=== PATIENT | male | born 1970 | race Caucasian/White ===

== ENCOUNTER 2018-05-29 09:45 | Emergency (ER) | payer OTHER, SELFPAY ==
[2018-05-29 09:45] VITALS: BP 165/84; PULSE 91; RESP 20; TEMP 36.6; O2SAT 98; BMI 25.8
--- NOTE | 2018-05-29 10:04 | CT_ITS ---
STUDY: CTA CHEST REASON FOR EXAM: Male, 48 years old. Left upper back pain. Chest pain. RADIATION DOSAGE (If Supplied By Facility): CTDIvol = ( 13.64 ) mGy, DLP = ( 949.84 ) mGycm TECHNIQUE: The examination was performed with the intravenous administration of 100 ml of Isovue 370 contrast material. Post-processing of the angiographic images was performed, with multiplanar reformation and 3D reconstruction. Individualized dose optimization techniques were used for this CT. COMPARISON: None. FINDINGS: Normal enhancement of the main pulmonary artery and right and left pulmonary arteries. Normal enhancement of the bilateral peripheral pulmonary arteries. There is no demonstrated pulmonary embolism. Normal thoracic aorta and visualized great vessels. There is no demonstrated aortic dissection. Normal heart and pericardium. Normal mediastinum. Normal hilar regions. Normal visualized trachea and bronchi. The lungs are well expanded. Normal pulmonary parenchyma. Normal pleura. Normal chest wall structures. Normal osseous structures. Normal visualized upper abdomen. IMPRESSION: Normal CTA chest examination, without a demonstrated pulmonary embolism or arterial dissection. Electronically Signed: Sang Romero MD at 11:19 EST , Service support , STUDY: CTA OF THE ABDOMINAL AORTA REASON FOR EXAM: Male, 48 years old. Left upper back pain. Chest pain. RADIATION DOSAGE (If Supplied By Facility): CTDIvol = ( 13.64 ) mGy, DLP = ( 949.84 ) mGycm TECHNIQUE: Axial CT angiography multi-detector data acquisition was obtained from the diaphragm to the sacrum following intravenous administration of 100 ml of Isovue 370 contrast. Axial images and MIP images were reconstructed from the axial data set. Post-processing of the angiographic images was performed, with multiplanar reformation and 3D reconstruction. Individualized dose optimization techniques were used for this CT. TECHNICAL QUALITY: Good COMPARISON: None. Descriptors of Narrowing: None (0%) Mild (< 50%) Moderate (50-70%) Severe (70-90%) Subtotal/Total Occlusion (90-100%) Non-Evaluable (technically non-diagnostic FINDINGS: Abdominal aorta: No demonstrated narrowing. Celiac and superior mesenteric arteries: No demonstrated narrowing. Inferior mesenteric artery: No demonstrated narrowing. Right renal artery(arteries): No demonstrated narrowing. Left renal artery(arteries): No demonstrated narrowing. Right common iliac artery: No demonstrated narrowing. Left common iliac artery: No demonstrated narrowing. The visualized lung bases are unremarkable. The visualized portions of the heart are within normal limits. Normal liver. Normal gallbladder and extrahepatic biliary system. Normal spleen. Normal pancreas. Normal bilateral adrenal glands. Normal right kidney. Normal left kidney. Normal visualized stomach. Normal small intestine. Normal colon. There is non-visualization of the appendix. Normal abdominal aorta. Normal inferior vena cava. Normal retroperitoneum. There is no free fluid in the abdomen. Normal abdominal wall. There is grade 1 spondylolisthesis at L5-S1 with bilateral pars interarticularis defects of L5. CT/CTA Abdomen W/WO Contrast IMPRESSION: Normal abdominal aorta without aneurysm or dissection. Electronically Signed: Sang Romero MD at 11:23 EST , Service support ,
--- NOTE | 2018-05-29 10:04 | EKG12_ITS ---
Test Reason : CHEST PAIN Blood Pressure : / mmHG Vent. Rate : 078 BPM Atrial Rate : 078 BPM P-R Int : 140 ms QRS Dur : 076 ms QT Int : 356 ms P-R-T Axes : 031 -12 045 degrees QTc Int : 405 ms Normal sinus rhythm with sinus arrhythmia Normal ECG Confirmed by JAYASHREE MILLS, DIANN ([id number]), manuscript editor ELLEN REAGAN ([id number]) on 06/01/2018 9:03:28 AM Referred By: EUGENIO Confirmed By:DIANN BLANC MD
--- NOTE | 2018-05-29 10:04 | CT_ITS ---
STUDY: CTA CHEST REASON FOR EXAM: Male, 48 years old. Left upper back pain. Chest pain. RADIATION DOSAGE (If Supplied By Facility): CTDIvol = ( 13.64 ) mGy, DLP = ( 949.84 ) mGycm TECHNIQUE: The examination was performed with the intravenous administration of 100 ml of Isovue 370 contrast material. Post-processing of the angiographic images was performed, with multiplanar reformation and 3D reconstruction. Individualized dose optimization techniques were used for this CT. COMPARISON: None. FINDINGS: Normal enhancement of the main pulmonary artery and right and left pulmonary arteries. Normal enhancement of the bilateral peripheral pulmonary arteries. There is no demonstrated pulmonary embolism. Normal thoracic aorta and visualized great vessels. There is no demonstrated aortic dissection. Normal heart and pericardium. Normal mediastinum. Normal hilar regions. Normal visualized trachea and bronchi. The lungs are well expanded. Normal pulmonary parenchyma. Normal pleura. Normal chest wall structures. Normal osseous structures. Normal visualized upper abdomen. IMPRESSION: Normal CTA chest examination, without a demonstrated pulmonary embolism or arterial dissection. Electronically Signed: Sang Romero MD at 11:19 EST , Service support , STUDY: CTA OF THE ABDOMINAL AORTA REASON FOR EXAM: Male, 48 years old. Left upper back pain. Chest pain. RADIATION DOSAGE (If Supplied By Facility): CTDIvol = ( 13.64 ) mGy, DLP = ( 949.84 ) mGycm TECHNIQUE: Axial CT angiography multi-detector data acquisition was obtained from the diaphragm to the sacrum following intravenous administration of 100 ml of Isovue 370 contrast. Axial images and MIP images were reconstructed from the axial data set. Post-processing of the angiographic images was performed, with multiplanar reformation and 3D reconstruction. Individualized dose optimization techniques were used for this CT. TECHNICAL QUALITY: Good COMPARISON: None. Descriptors of Narrowing: None (0%) Mild (< 50%) Moderate (50-70%) Severe (70-90%) Subtotal/Total Occlusion (90-100%) Non-Evaluable (technically non-diagnostic FINDINGS: Abdominal aorta: No demonstrated narrowing. Celiac and superior mesenteric arteries: No demonstrated narrowing. Inferior mesenteric artery: No demonstrated narrowing. Right renal artery(arteries): No demonstrated narrowing. Left renal artery(arteries): No demonstrated narrowing. Right common iliac artery: No demonstrated narrowing. Left common iliac artery: No demonstrated narrowing. The visualized lung bases are unremarkable. The visualized portions of the heart are within normal limits. Normal liver. Normal gallbladder and extrahepatic biliary system. Normal spleen. Normal pancreas. Normal bilateral adrenal glands. Normal right kidney. Normal left kidney. Normal visualized stomach. Normal small intestine. Normal colon. There is non-visualization of the appendix. Normal abdominal aorta. Normal inferior vena cava. Normal retroperitoneum. There is no free fluid in the abdomen. Normal abdominal wall. There is grade 1 spondylolisthesis at L5-S1 with bilateral pars interarticularis defects of L5. CT/CTA Chest W/WO Contrast IMPRESSION: Normal abdominal aorta without aneurysm or dissection. Electronically Signed: Sang Romero MD at 11:23 EST , Service support ,
[2018-05-29 10:19] LABS: Absolute Lymphocyte Count 1.56 X10^3/ul (0.83-4.51); Absolute Neutrophil Count 1.3 X10^3/uL (2.0-7.7); Basophil# 0.01 X10^3/uL; Basophil% 0.3 % (0-1); Eosinophil# 0.05 X10^3/uL; Eosinophils% 1.6 % (0-5); Hematocrit 47.6 % (40-54); Hemoglobin 16.6 g/dl (13.0-16.5); Lymphocyte # 1.56 X10^3/ul (4.0); Lymphocyte % 48.4 % (19-41); Mean Corp Hgb Conc 34.9 g/gl (32-36); Mean Corpuscular Hgb 32.7 pg (27.0-32.0); Mean Corpuscular Volume 93.9 fL (80-94); Mean Platelet Vol. 8.8 fl (6.2-12.0); Monocyte# 0.32 X10^3/uL; Monocyte% 9.9 % (0-10); Neutrophil # 1.27 X10^3/uL (2.7-7.7); Neutrophil % 39.5 % (47-70); POSITIVE COUNT NO; POSITIVE DIFFERENTIAL NO; POSITIVE MORPHOLOGY NO; Platelet Count 158 K/mm3 (150-450); RBC Distribution Width SD 44.3 fl (35.1-43.9); Red Blood Count 5.07 M/mm3 (4.6-6.2); White Blood Count 3.2 K/mm3 (4.4-11.0)
--- NOTE | 2018-05-29 10:29 | ED.DCSUM_ITS ---
- ER Visit Summary Date of Service: 05/29/18 Chief Complaint: Pain History of Present Illness: The patient is a 48 M with left mid back pain. This started about half an hour prior to arrival. He has intermittent sharp pains that radiate through to the left chest. He never had this before. Nothing seemed to bring it on or make it worse. He has intermittent sharp pains. No other associated symptoms. He slipped at work a couple days ago and pulled his left groin, but that has resolved. Otherwise no injuries. No recent medical issues, illnesses, or fevers. Patient has a history of GERD and H. pylori infections. History of appendectomy, umbilical hernia repair and inguinal hernia repair on the right remotely. Denies nausea, vomiting, or diarrhea. Denies urinary symptoms. Denies any history of aortic disease or pulmonary embolism. Denies any history of heart disease. Denies cough, shortness of breath, or recent illness. Physical Examination: Blood pressure 165/84. Otherwise vitals normal. Afebrile. Patient is having intermittent twinges of pain. Heart regular rate and rhythm. Lungs clear. Abdomen soft and nontender. Skin appears normal. Neurovascular intact in his extremities grossly. Test Results: EKG shows sinus rhythm at a rate of 78. No sign of acute ischemia or infarction pattern. Laboratory studies as well as CTA chest/abdomen/pelvis pending. Emergency Department Course and Treatment: Patient treated with morphine and Zofran while awaiting results. We will hold aspirin at this time for evaluation of his aorta. Patient will be monitored. White count 3.2 and hemoglobin 16.6. CMP and lipase normal. Troponin normal. CTA chest/abdomen/pelvis showed no PE or dissection. Normal vasculature. No other concerning findings. Patient likely has chest wall pain. No other emergent imaging or diagnostic procedures are indicated. Patient has a low risk heart score of 1 and he declined further testing or admission. Patient will follow-up as an outpatient. Prescribed anti-inflammatories and muscle relaxers. Return right away for new or worsening issues. Treatment Plan: As above Disposition: Discharge Impression: 1. Chest wall pain This note was generated with [employer] dictation software. It may contain incorrect words, spelling, and punctuation that were not noted in review of the chart prio r to signing ED Disposition - Plan for ED Patient: Chief Complaint: Chest Other Referrals: Nacho Perez DO [Primary Care Provider] -
[2018-05-29 10:34] LABS: AST(SGOT) 29 U/L (15-37); Alanine Aminotransfer ALT/SGPT 74 U/L (16-61); Albumin, Serum 4.2 g/dL (3.2-5.0); Alkaline Phosphatase 55 U/L (45-117); Anion Gap 9 (5-15); BUN 11 mg/dL (7-18); Bilirubin, Direct 0.11 mg/dL (0.00-0.30); Calcium,Total 8.7 mg/dL (8.5-10.1); Chloride 105 mmol/L (98-107); EST Glomerular Filtration Rate 84 mL/min (>60); Est Glom Filt Rate - Afr Amer 102 mL/min (>60); Estimated Creatinine Clearance 86.45 ml/min; Globulin 3.2 g/dL (2.2-4.2); Glucose 103 mg/dL (74-106); Lipase 116 U/L (73-393); Potassium 3.9 mmol/L (3.5-5.1); Protein, Total 7.4 g/dL (6.4-8.2); Sodium Level 141 mmol/L (136-145)
[2018-05-29] MEDS: Morphine 4 MG/ML Syringe IV (10:35)
[2018-05-29] MEDS: Ondansetron 4 MG/2 ML Vial IV (10:35)
[2018-05-29 10:50] VITALS: O2SAT 95
--- NOTE | 2018-05-29 12:16 | ED.DEP ---
ED Disposition - Plan for ED Patient: Chief Complaint: Chest Other Instructions: ED Chest Pain Atypical Unkn Cause Prescriptions: Ibuprofen [Motrin] 800 mg PO TID PRN PRN #20 tab PRN Reason: Pain Cyclobenzaprine [Flexeril] 10 mg PO TID PRN #20 tab PRN Reason: Muscle Spasm Referrals: Nacho Perez DO [Primary Care Provider] -
[2018-05-29 13:27] VITALS: BP 104/62; PULSE 68; RESP 17; RESP 19
== END 2018-05-29 13:28 | disposition home or self-care (01) ==
LOC: ED 10:24
PROVIDERS: Emergency Provider Emergency Medicine; Family Provider Family Medicine; PCP Family Medicine
DX: R07.89 Other chest pain (principal); M54.9 Dorsalgia, unspecified; K21.9 Gastro-esophageal reflux disease without esophagitis; F17.220 Nicotine dependence, chewing tobacco, uncomplicated; Z79.899 Other long term (current) drug therapy
CPT/HCPCS: 71275; 74175; 80048; 80076; 83690; 84484; 85025; 93005; 96374; 96375; 99284; J7030; Q9967; A4216; J2405

== ENCOUNTER → 2018-11-15 10:55 | Outpatient (CLI) | payer OTHER, SELFPAY ==
[2018-11-15 10:59] LABS: Bacteria 0 SEEN /hpf (None Seen); Mucous, Urine 0 SEEN /hpf (<or=2+); Red Blood Cells-Urine 0 SEEN /hpf (0-5); Squamous Epithelial Cells - UA 0 SEEN /hpf (0-5); White Blood Cells 0 SEEN /hpf (0-5)
[2018-11-15 12:17] LABS: Color, Urine Yellow (Yellow); Glucose, Dipstick Normal (Normal); Ketone-Dipstick Negative (Negative); Leukocyte Esterase-Dipstick Negative /ul (Negative); Nitrite-Dipstick Negative (Negative); Occult Blood-Urine Negative /ul (Negative); Protein-Dipstick Negative (Negative); Urine Bilirubin Dipstick Negative (Negative); Urine Clarity Clear (Clear); Urine Urobilinogen Normal (Normal)
[2018-11-15 12:34] LABS: Erythrocyte Sedimentation Rate 3 mm/hr (0-15)
[2018-11-15 13:34] LABS: ALB/GLOB Ratio 1.4 RATIO (0.9-2.4); AST(SGOT) 31 U/L (15-37); Alanine Aminotransfer ALT/SGPT 49 U/L (16-61); Albumin, Serum 4.1 g/dL (3.2-5.0); Alkaline Phosphatase 64 U/L (45-117); Anion Gap 5 (5-15); BUN 14 mg/dL (7-18); BUN/Creat Ratio 15.5 RATIO (10-20); CRP < 2.90 mg/L (0.0-3.0); Calcium,Total 8.7 mg/dL (8.5-10.1); Chloride 106 mmol/L (98-107); EST Glomerular Filtration Rate 95 mL/min (>60); Est Glom Filt Rate - Afr Amer 115 mL/min (>60); Glucose 95 mg/dL (74-106); Potassium 3.8 mmol/L (3.5-5.1); Protein, Total 7.1 g/dL (6.4-8.2); Rheumatoid Factor < 10.0 IU/mL (<15); Sodium Level 138 mmol/L (136-145)
[2018-11-16 12:06] LABS: ANTINUCLEAR ANTIBODIES DIRECT Positive (Negative); Anti-Centromere B Ab <0.2 AI (0.0-0.9); Anti-Chromatin <0.2 AI (0.0-0.9); Anti-Jo <0.2 AI (0.0-0.9); Anti-Scleroderma-70 AB <0.2 AI (0.0-0.9); RNP Ab 1.1 AI (0.0-0.9); SJOGREN'S Anti-SS-A test < 0.2 AI (0.0-0.9); SJOGREN'S Anti-SS-B test < 0.2 AI (0.0-0.9); Smith Ab <0.2 AI (0.0-0.9)
[2018-11-17 08:53] LABS: CCP IgG Antibodies 3 units (0-19)
[2018-11-17 10:37] LABS: Anti-dsDNA Ab <1 IU/mL (0-9)
== END ==
PROVIDERS: Family Provider Family Medicine; PCP Family Medicine; Visit Provider Family Medicine
DX: M79.641 Pain in right hand (principal); R10.9 Unspecified abdominal pain
CPT/HCPCS: 36415; 80053; 81001; 85652; 86038; 86140; 86200; 86225; 86235; 86431

== ENCOUNTER → 2020-04-25 10:58 | Outpatient (CLI) | payer BC, SELFPAY ==
[2020-04-25 12:35] LABS: Absolute Lymphocyte Count 1.72 X10^3/uL (0.83-4.51); Basophil# 0.02 X10^3/uL; Basophil% 0.6 % (0-1); Eosinophil# 0.05 X10^3/uL; Eosinophils% 1.6 % (0-5); Hematocrit 47.3 % (40-54); Hemoglobin 16.1 g/dL (13.0-16.5); Lymphocyte # 1.72 X10^3/ul (4.0); Lymphocyte % 53.6 % (19-41); Mean Corpuscular Hgb 32.4 pg (27.0-32.0); Mean Corpuscular Volume 95.2 fL (80-94); Mean Platelet Vol. 9.3 fl (6.2-12.0); Monocyte# 0.39 X10^3/uL; Monocyte% 12.1 % (0-10); NRBC Flagged by Analyzer 0 % (0-5); Neutrophil # 1.02 X10^3/uL (2.7-7.7); Neutrophil % 31.8 % (47-70); Platelet Count 178 K/mm3 (150-450); RBC Distribution Width CV 12.2 % (11.6-14.6); RBC Distribution Width SD 42.5 fl (35.1-43.9); Red Blood Count 4.97 M/mm3 (4.6-6.2); White Blood Count 3.2 K/mm3 (4.4-11.0)
[2020-04-25 13:17] LABS: ALB/GLOB Ratio 1.2 RATIO (0.9-2.4); AST(SGOT) 27 U/L (15-37); Alanine Aminotransfer ALT/SGPT 69 U/L (16-61); Albumin, Serum 3.7 g/dL (3.2-5.0); Alkaline Phosphatase 59 U/L (45-117); Anion Gap 6 (5-15); BUN 11 mg/dL (7-18); BUN/Creat Ratio 11.2 RATIO (10-20); Calcium,Total 8.7 mg/dL (8.5-10.1); Chloride 107 mmol/L (98-107); Cholesterol 254 mg/dL (200); Creatinine, Serum 0.98 mg/dL (0.70-1.30); EST Glomerular Filtration Rate 86 mL/min (>60); Est Glom Filt Rate - Afr Amer 104 mL/min (>60); Globulin 3.2 g/dL (2.2-4.2); Glucose 86 mg/dL (74-106); High Density Lipoprotein 53 mg/dL; Protein, Total 6.9 g/dL (6.4-8.2); Sodium Level 141 mmol/L (136-145); Triglycerides 152 mg/dL; Very Low Density Lipoprotein 30 mg/dL (5-40)
== END ==
PROVIDERS: PCP Family Medicine; Visit Provider Family Medicine
DX: Z00.00 Encounter for general adult medical examination without abnormal findings (principal); Z12.5 Encounter for screening for malignant neoplasm of prostate
CPT/HCPCS: 36415; 80053; 80061; 84153; 85025; G0103

== ENCOUNTER → 2021-05-21 | Outpatient (CLI) | payer BC, SELFPAY | END | disposition home or self-care (01) | LOC: LABSPEC 12:28 | PROVIDERS: PCP Family Medicine; Visit Provider Family Medicine | DX: U07.1 COVID-19 (principal) | CPT/HCPCS: 87635; U0005; U0003 ==

== ENCOUNTER → 2022-04-30 | Outpatient (CLI) | payer BC, SELFPAY ==
[2022-04-30 15:11] LABS: Absolute Lymphocyte Count 2.26 X10^3/uL (0.83-4.51); Absolute Neutrophil Count 1.7 X10^3/uL (2.0-7.7); Basophil# 0.02 X10^3/uL; Basophil% 0.5 % (0-1); Eosinophil# 0.06 X10^3/uL; Eosinophils% 1.4 % (0-5); Hematocrit 46.9 % (40-54); Hemoglobin 16.2 g/dL (13.0-16.5); Lymphocyte # 2.26 X10^3/ul (0.83-4.51); Mean Corp Hgb Conc 34.5 g/dL (32-36); Mean Corpuscular Volume 92.7 fL (80-94); Mean Platelet Vol. 9.1 fl (6.2-12.0); Monocyte# 0.33 X10^3/uL; Monocyte% 7.6 % (0-10); NRBC Flagged by Analyzer 0 % (0-5); Neutrophil # 1.66 X10^3/uL (2.7-7.7); Platelet Count 207 K/mm3 (150-450); RBC Distribution Width CV 12.5 % (11.6-14.6); RBC Distribution Width SD 42.5 fl (35.1-43.9); Red Blood Count 5.06 M/mm3 (4.6-6.2); White Blood Count 4.4 K/mm3 (4.4-11.0)
[2022-04-30 15:34] LABS: ALB/GLOB Ratio 1.1 RATIO (0.9-2.4); AST(SGOT) 18 U/L (15-37); Alanine Aminotransfer ALT/SGPT 58 U/L (16-61); Alkaline Phosphatase 68 U/L (45-117); Anion Gap 4 (5-15); BUN 12 mg/dL (7-18); BUN/Creat Ratio 11.7 RATIO (10-20); Calcium,Total 8.9 mg/dL (8.5-10.1); Chloride 107 mmol/L (98-107); Cholesterol 251 mg/dL (200); Creatinine, Serum 1.03 mg/dL (0.70-1.30); EST Glomerular Filtration Rate 80 mL/min (>60); Est Glom Filt Rate - Afr Amer 97 mL/min (>60); Globulin 3.6 g/dL (2.2-4.2); Glucose 92 mg/dL (74-106); High Density Lipoprotein 52 mg/dL; PSA,Total - Annual Screen 1.39 ng/mL (0.00-4.00); Potassium 4.2 mmol/L (3.5-5.1); Protein, Total 7.6 g/dL (6.4-8.2); Sodium Level 139 mmol/L (136-145); Triglycerides 189 mg/dL; Very Low Density Lipoprotein 38 mg/dL (5-40)
== END | disposition home or self-care (01) ==
LOC: BFHLAB 12:28
PROVIDERS: PCP Family Medicine; Visit Provider Family Medicine
DX: Z00.00 Encounter for general adult medical examination without abnormal findings (principal); Z12.5 Encounter for screening for malignant neoplasm of prostate
CPT/HCPCS: 36415; 80053; 80061; 84153; 85025; G0103

== ENCOUNTER → 2022-06-04 | Outpatient (CLI) | payer BC, SELFPAY ==
--- NOTE | 2022-06-04 07:56 | CT_ITS ---
INDICATION: PAIN EXAMINATION: CT ABDOMEN AND PELVIS WITH CONTRAST - CT Abdomen And Pelvis W/ Contrast Injection TECHNIQUE: Helically acquired images were obtained of the abdomen and pelvis following IV contrast. A radiation dose optimization technique was used for this scan. IV Contrast dosage and agent: 100 cc of Isovue-300 Oral contrast: Redicat COMPARISON: May 29, 2018 FINDINGS: LOWER CHEST: Lung bases are clear. No cardiomegaly or pericardial effusion. LIVER: Homogeneous. No focal mass. GALLBLADDER AND BILIARY TREE: No calcified gallstones. No gallbladder distension or wall edema. No intra- or extrahepatic biliary ductal dilation. PANCREAS: No focal cystic or solid mass. SPLEEN: Normal size without focal cystic or solid mass. ADRENAL GLANDS: No nodules. KIDNEYS AND URETERS: Normal renal size and position. No hydronephrosis. PERITONEUM: No ascites or free air. No other fluid collection. BOWEL: No stomach or bowel distension. No focal inflammatory change. There is nonvisualization of the appendix. LYMPH NODES: No enlarged mesenteric or retroperitoneal lymph nodes. VESSELS: Aorta is non-dilated. URINARY BLADDER: Unremarkable. REPRODUCTIVE ORGANS: No pelvic masses. ABDOMINAL WALL: No discrete abdominal or pelvic wall hernia. BONES: No lytic or blastic abnormality. There are stable bilateral L5 pars defects associated with a stable grade 1 anterior spondylolisthesis of L5 on S1. CT/Abdomen/Pelvis WITH Contrast IMPRESSION: Stable examination demonstrating no acute intra-abdominal process. Electronically Signed: Adrienne Fortune MD at 8:34 EST ,
== END | disposition home or self-care (01) ==
PROVIDERS: PCP Family Medicine; Referring Provider Family Medicine; Visit Provider Family Medicine
DX: M43.17 Spondylolisthesis, lumbosacral region (principal); R10.30 Lower abdominal pain, unspecified
CPT/HCPCS: 74177; Q9967

== ENCOUNTER → 2023-10-06 | Outpatient (CLI) | payer BC, SELFPAY ==
[2023-10-06 12:56] LABS: Absolute Lymphocyte Count 1.11 X10^3/uL (0.83-4.51); Basophil# 0.01 X10^3/uL; Basophil% 0.4 % (0-1); Eosinophil# 0.03 X10^3/uL; Eosinophils% 1.2 % (0-5); Hematocrit 44.7 % (40-54); Hemoglobin 15.3 g/dL (13.0-16.5); Lymphocyte # 1.11 X10^3/ul (0.83-4.51); Lymphocyte % 45.1 % (19-41); Mean Corp Hgb Conc 34.2 g/dL (32-36); Mean Corpuscular Volume 93.5 fL (80-94); Mean Platelet Vol. 9.4 fl (6.2-12.0); Monocyte# 0.31 X10^3/uL; Monocyte% 12.6 % (0-10); NRBC Flagged by Analyzer 0 % (0-5); Neutrophil % 40.7 % (47-70); Platelet Count 172 K/mm3 (150-450); RBC Distribution Width CV 12.8 % (11.6-14.6); RBC Distribution Width SD 43.9 fl (35.1-43.9); Red Blood Count 4.78 M/mm3 (4.6-6.2); White Blood Count 2.5 K/mm3 (4.4-11.0)
[2023-10-06 13:18] LABS: ALB/GLOB Ratio 1.2 RATIO (0.9-2.4); AST(SGOT) 17 U/L (15-37); Alanine Aminotransfer ALT/SGPT 36 U/L (16-61); Albumin, Serum 3.8 g/dL (3.2-5.0); Alkaline Phosphatase 51 U/L (45-117); Anion Gap 7 (5-15); BUN 10 mg/dL (7-18); BUN/Creat Ratio 11.4 RATIO (10-20); Calcium,Total 8.7 mg/dL (8.5-10.1); Chloride 109 mmol/L (98-107); Cholesterol 229 mg/dL (200); Creatinine, Serum 0.88 mg/dL (0.70-1.30); EST Glomerular Filtration Rate 96 mL/min (>60); Est Glom Filt Rate - Afr Amer 116 mL/min (>60); Globulin 3.1 g/dL (2.2-4.2); Glucose 108 mg/dL (74-106); High Density Lipoprotein 51 mg/dL; PSA,Total - Annual Screen 2.46 ng/mL (0.00-4.00); Potassium 3.9 mmol/L (3.5-5.1); Protein, Total 6.9 g/dL (6.4-8.2); Sodium Level 139 mmol/L (136-145); Triglycerides 140 mg/dL; Very Low Density Lipoprotein 28 mg/dL (5-40)
== END | disposition home or self-care (01) ==
LOC: LAB.FUTURE 09:13
PROVIDERS: PCP Family Medicine; Referring Provider Family Medicine; Visit Provider Family Medicine
DX: Z00.00 Encounter for general adult medical examination without abnormal findings (principal); Z12.5 Encounter for screening for malignant neoplasm of prostate
CPT/HCPCS: 36415; 80053; 80061; 84153; 85025; G0103

== ENCOUNTER → 2023-10-28 | Outpatient (CLI) | payer BC, SELFPAY ==
[2023-10-28 12:43] LABS: Absolute Lymphocyte Count 1.34 X10^3/uL (0.83-4.51); Absolute Neutrophil Count 0.9 X10^3/uL (2.0-7.7); Basophil# 0.03 X10^3/uL; Basophil% 1.1 % (0-1); Eosinophil# 0.03 X10^3/uL; Eosinophils% 1.1 % (0-5); Hematocrit 45.4 % (40-54); Hemoglobin 15.3 g/dL (13.0-16.5); Lymphocyte # 1.34 X10^3/ul (0.83-4.51); Lymphocyte % 50.8 % (19-41); Mean Corp Hgb Conc 33.7 g/dL (32-36); Mean Corpuscular Hgb 31.7 pg (27.0-32.0); Mean Platelet Vol. 9.2 fl (6.2-12.0); Monocyte% 11.4 % (0-10); NRBC Flagged by Analyzer 0 % (0-5); Neutrophil # 0.94 X10^3/uL (2.7-7.7); Neutrophil % 35.6 % (47-70); POSITIVE DIFFERENTIAL YES; Platelet Count 183 K/mm3 (150-450); RBC Distribution Width CV 12.8 % (11.6-14.6); RBC Distribution Width SD 43.9 fl (35.1-43.9); Red Blood Count 4.83 M/mm3 (4.6-6.2); White Blood Count 2.6 K/mm3 (4.4-11.0)
[2023-10-28 12:44] LABS: Differential Indicated SCAN CRITERIA MET
[2023-10-28 13:27] LABS: Differential Comment SCANNED
[2023-10-30 13:08] LABS: Anti-Nuclear Antibody Test Negative (.)
== END | disposition home or self-care (01) ==
LOC: BFHLAB 09:23
PROVIDERS: PCP Family Medicine; Referring Provider Family Medicine; Visit Provider Family Medicine
DX: D72.819 Decreased white blood cell count, unspecified (principal); R76.8 Other specified abnormal immunological findings in serum
CPT/HCPCS: 36415; 85025; 86038

== ENCOUNTER → 2025-03-01 | Outpatient (CLI) | payer BC, SELFPAY ==
--- NOTE | 2025-03-01 10:40 | US_ITS ---
PROCEDURE: TESTICULAR WITH ARTERIAL FLOW 03/01/2025 REASON FOR EXAM: Bilateral intermittent testicular pain. TECHNIQUE: Procedure Code: USTES Modality: US Procedure: TESTICULAR WITH ARTERIAL FLOW COMPARISON: None FINDINGS: RIGHT testicle: 4.7 cm x 2.8 cm x 2.5 cm Homogeneous echotexture. No intratesticular mass. Right epididymis: 0.9 cm x 1.3 cm 1.1 cm LEFT testicle: 4.5 cm x 2.9 cm x 2.3 cm Homogeneous echotexture. No intratesticular mass. Left epididymis: 0.9 cm x 1.5 cm 1.2 cm Other findings: Small bilateral hydroceles. Small bilateral varicoceles. US/Testicular with Arterial Flow IMPRESSION: Homogeneous echotexture of both testicles. Small bilateral hydroceles and small bilateral varicoceles. Reading Location: [id number]
== END | disposition home or self-care (01) ==
LOC: US 10:37
PROVIDERS: PCP Family Medicine; Referring Provider Family Medicine; Visit Provider Family Medicine
DX: N50.82 Scrotal pain (principal)
CPT/HCPCS: 76870; 93976

== ENCOUNTER → 2025-03-16 | Outpatient (CLI) | payer BC, SELFPAY ==
[2025-03-16 11:08] LABS: PSA,Total - Annual Screen 2.63 ng/mL (0.02-4.00)
== END | disposition home or self-care (01) ==
LOC: LAB 09:07
PROVIDERS: PCP Family Medicine; Referring Provider Urology; Visit Provider Urology
DX: Z12.5 Encounter for screening for malignant neoplasm of prostate (principal)
CPT/HCPCS: 36415; 84153; G0103

== ENCOUNTER → 2025-03-24 | Outpatient (CLI) | payer BC, SELFPAY ==
--- NOTE | 2025-03-24 07:56 | US_ITS ---
PROCEDURE: US/Ext Non Vasc Limited/Soft Tiss
== END | disposition home or self-care (01) ==
LOC: US 07:51
PROVIDERS: PCP Family Medicine; Referring Provider Physician Assistant; Visit Provider Physician Assistant
DX: R22.2 Localized swelling, mass and lump, trunk (principal)
CPT/HCPCS: 76882

== ENCOUNTER 2025-04-14 11:40 | Day surgery (SDC) | payer BC, SELFPAY ==
[2025-04-14] VITALS (8 sets, daily range): BP systolic 99–125; BP diastolic 60–88; PULSE 78–95; RESP 12–16; TEMP 36.6–37.1; O2SAT 93–98; BMI 27.8
--- NOTE | 2025-04-14 12:10 | PCM.PRE.AN2 ---
ASA Classification* ASA Classification ASA Classification: 2 Assessment & Plan Anesthesia* Anesthesia Assessment Anesthesia Assessment: Discussed sedation and/or anesthesia options, risks, benefits, and alternatives with patient/parents/legal guardian/POA. Questions invited. The patient/parents/legal guardian/POA seems to understand and agrees to proceed with anesthesia plan. Reviewed the physical assessment, medical history, allergy history and patient home medications list prior to surgery/procedure/anesthetic and documented any changes. Performed airway and anesthesia risk assessments. Anesthesia Type Anesthesia Type: MAC Anesthesia Focused Assessment* Airway Assessment Mouth opens: >3 cm Mallampati Score: II Labs Anesthesia Preop lab: CBC WBC, (4.4-11.0) 2.6 K/mm3 L 10/28/23, : RBC, (4.6-6.2) 4.83 M/mm3 10/28/23, : Hgb, (13.0-16.5) 15.3 g/dL 10/28/23, : Hct, (40-54) 45.4 % 10/28/23, : Plt Count, (150-450) 183 K/mm3 10/28/23, 09:23 CHEMISTRY Potassium, (3.5-5.1) 3.9 mmol/L 10/06/23, 09:17 Sodium, (136-145) 139 mmol/L 10/06/23, 09:17 BUN, (7-18) 10 mg/dL 10/06/23, 09:17 Creatinine, (0.70-1.30) 0.88 mg/dL 10/06/23, 09:17 Glucose, (74-106) 108 mg/dL H 10/06/23, 09:17 COAG Pre-Assessment Diagnosis/Proposed Procedure Planned Operative Procedure(s): EXCISION OF MASS ON BACK Anesthesia History Anesthesia History - postdoctoral scientist: Anesthesia History - postdoctoral scientist Hx Hospitalization No 04/05/25 12:54 Any Problems With Anesthesia No 04/05/25 12:54 Cholinesterase deficiency No 04/05/25 12:54 You/Your Family Experience No 04/05/25 12:54 fever (hyperthermia) with Relationship Recent Exposure to Contagious Disease Does patient have nerve No 04/05/25 12:54 stimulator Patient instructed to have device shut off --Does patient have Pacemaker or ICD? When Was Last Pacemaker Check QUESTION #4 FULL TEXT: You/Your Family Experience fever (hyperthermia) with Anesthesia Last Oral Intake Last Oral intake: Last Oral Intake NPO since Meds taken in AM with sips of water? Meds patient instructed to take am of surgery PONV PONV - postdoctoral scientist: PONV - postdoctoral scientist Female Yes 04/05/25 12:54 HX of Motion Sickness No 04/05/25 12:54 HX of N/V After Surgery No 04/05/25 12:54 Non-Smoker No 04/05/25 12:54 Duration of Surgery greater Yes 04/05/25 12:54 than 60 minutes Number of Risk Factors 2 04/05/25 12:54 PONV Score Moderate Risk 04/05/25 12:54 Height & Weight Height & Weight: Anesthesia: Height & Weight Height 5 ft 8 in 03/10/25 09:37 Respiratory Assessment Respiratory Assessment - postdoctoral scientist: Respiratory Tract Infection Hx - postdoctoral scientist Hx Respiratory Tract Infection No 04/05/25 12:54 STOP Sleep Apnea STOP Sleep Apnea - postdoctoral scientist: STOP Sleep Apnea - postdoctoral scientist Hx Hypertension No 04/05/25 12:54 Hx Sleep Apnea No 04/05/25 12:54 CPAP BIPAP Do you snore loudly (louder No 04/05/25 12:54 than talking or can be heard Do you often feel tired/ No 04/05/25 12:54 fatigued/ sleepy during daytime? Has anyone observed you stop No 04/05/25 12:54 breathing during sleep? STOP Results Negative 04/05/25 12:54 QUESTION #5 FULL TEXT : Do you snore loudly (louder than talking or can be heard through closed doors)? 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 Specify any problems Hx of Preganancy in last 3 N/A 04/05/25 12:54 Months Nurse Filling Out Transfusion DSCHRIBER 04/05/25 12:54 & Questions: Date: 04/05/25 04/05/25 12:54 Time: 12:55 04/05/25 12:54 Patient unable to answer at this time (ie. confused, unrespo /Reproduction History /Reproductive History - postdoctoral scientist: /Reproductive Hx- postdoctoral scientist Hx Now No 04/05/25 12:54 Gestational Age (in weeks): EDC: Hx Hx Para Hx Section SAB No 04/05/25 12:54 Does the father of the baby or his family experience fever w Father of the baby Malignant Hypertension history comment Active Medications Active Medications: Current Medications Generic Name Dose Route Start Last Admin Trade Name Freq PRN Reason Stop Dose Admin Lactated Ringer's 1,000 mls @ 15 mls/hr 04/14/25 12:00 IV .Q48H LOVE PFSH Medical History Marijuana use Alcohol use History of hiatal hernia Epididymitis due to infection Gastric reflux Chewing tobacco dependence Mass of subcutaneous tissue of back Home Medications ?Medication ?Instructions ?Recorded ?Last Taken ?Type doxycycline hyclate 100 mg tablet 100 mg PO BID 04/05/25 Unknown History Allergy/AdvReac Type Severity Reaction Status Date / Time No Known Allergies Allergy Verified 04/05/25 12:52 Surgical History History of umbilical hernia repair History of esophagogastroduodenoscopy (EGD) Hx of colonoscopy Hx of appendectomy Social History Smoking Status: Current every day smoker tobacco type: smokeless tobacco Smokeless tobacco user: chewing tobacco Review of Systems (Anesthesia) ROS Narrative System reviewed and no additional complaints, except as documented.
[2025-04-14] MEDS: Lactated Ringers 1,000 ML 15 ML IV (12:36)
--- NOTE | 2025-04-14 12:43 | PCM.HP.STD ---
HPI - General HPI Narrative PREM BILL, is a 55 M who presents with a right back mass/cyst. Presents today for excision. I marked him in preop holding and he was in agreement with the site marking. US demonstrated likely lipoma Current Encounter (DATE OF SURGERY H&P UPDATE): I saw and examined the patient this morning in pre-operative holding. We discussed risks and benefits of today's surgery and they would like to proceed. NO CHANGE in health history since last seen and evaluated. Ready to proceed with surgery. [facility] Medical History Marijuana use Alcohol use History of hiatal hernia Epididymitis due to infection Gastric reflux Chewing tobacco dependence Mass of subcutaneous tissue of back Home Medications ?Medication ?Instructions ?Recorded ?Last Taken ?Type doxycycline hyclate 100 mg tablet 100 mg PO BID 04/05/25 04/14/25 History oxycodone 5 mg tablet 5 mg PO DAILY PRN pain 5 days #5 04/14/25 Unknown Rx tabs Allergy/AdvReac Type Severity Reaction Status Date / Time No Known Allergies Allergy Verified 04/14/25 12:29 Surgical History History of umbilical hernia repair History of esophagogastroduodenoscopy (EGD) Hx of colonoscopy Hx of appendectomy Social History Smoking Status: Current every day smoker tobacco type: smokeless tobacco Smokeless tobacco user: chewing tobacco Vital Signs Vital Signs Vital Signs: 04/14/25 12:29 04/14/25 12:29 04/14/25 12:29 Temperature 97.8 F Temperature Source Temporal Pulse Rate 78 Respiratory Rate 16 Respiratory Pattern Normal Blood Pressure 125/88 H Blood Pressure Mean 100 Blood Pressure Source Monitor Blood Pressure Position Semi-Fowlers Blood Pressure Location Right Arm Baseline BP 125/88 Pulse Ox 98 Oxygen Delivery Method Room Air Weight Weight: 183 lb 3.266 oz Body Mass Index (BMI) 27.8 Physical Exam Narrative Right upper back subcutaneous lipoma mobile Assessment & Plan Assessment/Plan (1) Mass of subcutaneous tissue of back: PLAN: I talked to the patient extensively about the risks of surgery, including bleeding, infection, damage to surrounding structures, poor scaring, surgical site dehiscence and wound formation, need for wound care, need for repeat operations, failure to obtain the desired result, DVT/PE, and the risks of anesthesia including , including stroke (from low blood pressure/ischemia or clot). The benefits and alternatives of this surgery were also discussed. All of their questions were answered, and they agreed to proceed with surgery.
[2025-04-14] MEDS: Cefazolin 1 GM/5 ML Vial 2 GM IV (12:59)
[2025-04-14] MEDS: Midazolam 2 MG/2 ML Syringe IV (12:59)
[2025-04-14] MEDS: Lidocaine 1% (5 ml sdv) 5 ML Vial IV (13:08)
[2025-04-14] MEDS: Bupiv/Epi 0.25% 30 ML Vial (13:16)
[2025-04-14] MEDS: Lidocaine 1% /Epi 1:100 (20ml) 20 ML Vial (13:16)
[2025-04-14] MEDS: fentaNYL 100 MCG/2 ML Ampul 50 MCG IV (13:17)
--- NOTE | 2025-04-14 13:25 | MASS_PTH ---
PATIENT: PRE[place] [facility] [id number] AGE/SX: 55/M ROOM: RE04/14/[address]: Dr. Santo Lujan MD : [id number] BED: DIS: 04/14/2025 SPEC #: [id number] RECD: 04/14/25 14:00 STATUS: JOSE KENNETH #: [id number] LENO: 04/14/25 13:[address]: Santo Lujan DEPT: SURGICAL PATHOLOGY RECD BY: Zbigniew Jefferson ENTERED: 04/14/25 14:52 SP TYPE: Mass OTHR DR: Dr. Nacho Perez, DO Tissues: A - Back, NOS Procedures: Surgery Specimen Level IV HEADER OPERATION: Excision of mass on back PRE-OP DIAGNOSIS: Mass of subcutaneous tissue of back TISSUE SUBMITTED: A- Back mass MICROSCOPIC DIAGNOSIS A. Soft tissue, back, excision: * Lipoma MICROSCOPIC DESCRIPTION Slides are reviewed. GROSS DESCRIPTION A. Received in formalin labeled with the patient's name and date of . Designated as back mass is a 6.0 x 3.7 x 1.6 cm rodriguez-yellow, lobulated and somewhat shaggy portion of soft tissue. Sectioning reveals rodriguez-pink to yellow, granular and lobulated cut surfaces with focal pale areas. Senior Clinical Data Coordinator sections are submitted in 3 cassettes. PR 04/14/2025 CPT:06041
--- NOTE | 2025-04-14 13:47 | PCM.POST.ANE ---
Anesthesia: Postop Eval I Current Vital Signs Temperature: 98.7 F Pulse Rate: 92 Blood Pressure: 110/77 Respiratory Rate: 12 Pulse Ox: 95 Oxygen Delivery Method: Room Air Assessment Airway patent: Yes Spontaneous unlabored respirations: Yes Mental status: Awake and Calm nausea: No Vomiting: No Anesthesia Complication: No Fluid Hydration Crystalloid volume administer (ml): 500 Total IV fluid infused: 500 Progress Note Anesthesia document: Postop Eval 1 completed: Yes
--- NOTE | 2025-04-14 13:56 | POSTOPAN2_ITS ---
Anesthesia Postop Eval I Sum Postop Eval Completion status Anesthesia document: Postop Eval 1 completed: Yes Anesthesia Postop Eval I Summary Anesthesia Postop Eval I Summary: Anesthesia Postop Eval I: Assessment Summary Airway patent Yes 04/14/25 13:48 [email or web address] Spontaneous unlabored Yes 04/14/25 13:48 [email or web address] [email or web address] respirations Mental status Awake,Calm 04/14/25 13:48 [email or web address] [email or web address] nausea No 04/14/25 13:48 [email or web address] Vomiting No 04/14/25 13:48 [email or web address] Anesthesia Postop Eval I: Fluid Summary Crystalloid volume administer 500 04/14/25 13:48 [email or web address] (ml) Colloids volume administered ( ml) Blood Product volume administered (ml) Total IV fluid infused 500 04/14/25 13:48 [email or web address] Anesthesia Postop Eval I: Summary Notes Anesthesia Complication No 04/14/25 13:48 [email or web address] Anesthesia Complication Comment: Post-operative progress note Anesthesia: Postop Eval II Evaluation Mental status: Awake Pain Level: 1 nausea: No Vomiting: No
--- NOTE | 2025-04-14 13:56 | PCM.POSTANE2 ---
Anesthesia Postop Eval I Sum Postop Eval Completion status Anesthesia document: Postop Eval 1 completed: Yes Anesthesia Postop Eval I Summary Anesthesia Postop Eval I Summary: Anesthesia Postop Eval I: Assessment Summary Airway patent Yes 04/14/25 13:48 [email or web address] Spontaneous unlabored Yes 04/14/25 13:48 [email or web address] [email or web address] respirations Mental status Awake,Calm 04/14/25 13:48 [email or web address] nausea No 04/14/25 13:48 [email or web address] Vomiting No 04/14/25 13:48 [email or web address] Anesthesia Postop Eval I: Fluid Summary Crystalloid volume administer 500 04/14/25 13:48 [email or web address] (ml) Colloids volume administered ( ml) Blood Product volume administered (ml) Total IV fluid infused 500 04/14/25 13:48 [email or web address] Anesthesia Postop Eval I: Summary Notes Anesthesia Complication No 04/14/25 13:48 [email or web address] Anesthesia Complication Comment: Post-operative progress note Anesthesia: Postop Eval II Evaluation Mental status: Awake Pain Level: 1 nausea: No Vomiting: No
--- NOTE | 2025-04-14 14:22 | OP.PCM_ITS ---
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 coordinator: Yes Subgrade Roller Operator: Evy Mensah Tasks completed by rn first assist: Retracting Type of Anesthesia: Local MAC (30 cc of 50-50 mixture of 1% lidocaine with 1- 200,000 epinephrine and quarter percent Marcaine with 1-200,000 epinephrine) RN Documented Start/Stop Times: Operation Date: 04/14/25 13:25 Case Time Into Pre-Op 04/14/25 11:58 Anesthesia Start 04/14/25 12:58 Into Room 04/14/25 12:58 Procedure Start 04/14/25 13:16 Procedure End 04/14/25 13:37 Anesthesia End 04/14/25 13:43 Out of Room 04/14/25 13:43 Into Recovery 04/14/25 13:45 Into Phase II Recovery 04/14/25 14:08 Out of Recovery 04/14/25 14:08 Procedure Start Time: 13:16 Procedure Stop Time: 13:37 Select all DRAINS/GRAFTS/IMPLANTS that apply: None Estimated Blood Loss: 5 cc Specimen collected: Yes Description of specimen(s) removed: Right upper back mass Description of surgery: Indications: Patient is a delightful 55-year-old male with a right upper back mass. Presents today for excision. He understands the risk benefits and alternatives. Procedure details: Patient was marked in preoperative holding and agreed with the site marking. He was taken back to the operating room where he was administered sedation and above-noted local anesthesia. He was prepped and draped in sterile fashion and all proper timeouts were performed. 15 blade scalpel was used to make an incision over the mass directly. Dissection was taken down with Bovie electrocautery and tenotomy scissors around the mass and it was excised in 1 piece. It was subfascial, but not beneath the muscle. It measured 3.5 x 5 cm. The wound was irrigated with copious amounts normal saline. It was then closed in layers with 0 PDS deep sutures followed by 3-0 Monocryl deep dermal sutures and 3-0 Monocryl running subcuticular and Prineo tape. Patient tolerated the procedure well. He was awakened and taken the PACU in stable condition. Surgical Findings: Consistent with lipoma Complications Complications: No
== END 2025-04-14 14:38 | disposition home or self-care (01) ==
LOC: SDC 11:45 → AC 11:45
PROVIDERS: PCP Family Medicine; Referring Provider Surgery Plastic and Reconstructive Surgery; Visit Provider Surgery Plastic and Reconstructive Surgery
PROC: (CPT 21933; principal; 2025-04-14 13:10)
DX: D17.1 Benign lipomatous neoplasm of skin and subcutaneous tissue of trunk (principal); F17.220 Nicotine dependence, chewing tobacco, uncomplicated
CPT/HCPCS: 21933; 00300; 88305

== ENCOUNTER → 2025-04-24 | Outpatient (CLI) | payer BC, SELFPAY ==
[2025-04-24 10:35] LABS: Hematocrit 45.4 % (40-54); Hemoglobin 15.6 g/dL (13.0-16.5); Mean Corp Hgb Conc 34.4 g/dL (32-36); Mean Corpuscular Volume 91.9 fL (80-94); Mean Platelet Vol. 9.2 fl (6.2-12.0); Platelet Count 191 K/mm3 (150-450); RBC Distribution Width CV 12.4 % (11.6-14.6); RBC Distribution Width SD 41.4 fl (35.1-43.9); Red Blood Count 4.94 M/mm3 (4.6-6.2); White Blood Count 3.1 K/mm3 (4.4-11.0)
[2025-04-24 11:01] LABS: Anion Gap 11 (5-15); BUN 11 mg/dL (4-19); BUN/Creat Ratio 11.4 RATIO (10-20); Calcium,Total 8.8 mg/dL (7.6-11.0); Carbon Dioxide 20.6 mmol/L (21.0-32.0); Chloride 106 mmol/L (98-108); Glucose 121 mg/dL (70-99); Potassium 4.1 mmol/L (3.3-5.1)
== END | disposition home or self-care (01) ==
LOC: LAB 09:38
PROVIDERS: PCP Family Medicine; Referring Provider Urology; Visit Provider Urology
DX: Z01.812 Encounter for preprocedural laboratory examination (principal)
CPT/HCPCS: 36415; 80048; 85027

== ENCOUNTER → 2025-04-26 | Outpatient (CLI) | payer BC, SELFPAY ==
--- NOTE | 2025-04-26 08:14 | EKG12_ITS ---
Test Reason : PREOP Blood Pressure : */* mmHG Vent. Rate : 69 BPM Atrial Rate : 69 BPM P-R Int : 122 ms QRS Dur : 120 ms QT Int : 404 ms P-R-T Axes : 6 12 27 degrees QTcB Int : 432 ms Normal sinus rhythm Right bundle branch block Abnormal ECG Reconfirmed by Kal Christiansen ([id number]), editor managing newspaper DARIEL URIOSTEGUI ([id number]) on 05/03/2025 9:50:44 AM Referred By: Marty Alberts Confirmed By: Kal Christiansen
== END | disposition home or self-care (01) ==
PROVIDERS: PCP Family Medicine; Referring Provider Urology; Visit Provider Urology
DX: Z01.810 Encounter for preprocedural cardiovascular examination (principal)
CPT/HCPCS: 93005

== ENCOUNTER 2025-04-28 07:30 | Outpatient (CLI) | payer BC, SELFPAY ==
--- NOTE | 2025-04-28 07:30 | EPI_PTH ---
PATIENT: PREM BILL LOC: [facility] U#:[id number] AGE/SX: 55/M ROOM: RE04/28/[address]: Dr. Marty Alberts MD : 1970 BED: DIS: 04/28/2025 SPEC #: [id number] RECD: 05/01/25 15:01 STATUS: JOSE REMerle #: [id number] LENO: 04/28/25 07:[address]: Marty Alberts DEPT: SURGICAL PATHOLOGY RECD BY: Florence Aldridge ENTERED: 05/02/25 10:13 SP TYPE: EPIDIDYMIS OTHR DR: Dr. Nacho Perez, DO Tissues: Epididymis, NOS Procedures: Surgery Specimen Level V HEADER OPERATION: Left removal of epididymis PRE-OP DIAGNOSIS: Epididymitis left TISSUE SUBMITTED: A- Left epididymis MICROSCOPIC DIAGNOSIS A. Epididymis, left, epididymectomy: - Benign epididymal parenchyma with no significant inflammation. - Spermatogenesis noted. MICROSCOPIC DESCRIPTION Slides are reviewed. GROSS DESCRIPTION A. Received in formalin labeled with the patient's name and date of . Designated as left epididymis is a 5.4 x 1.0 x 0.5 cm rodriguez-pink to mendez elongated, rubbery portion of tissue devoid of orientation. The external surfaces are inked black. Sectioning reveals rodriguez to light brown, spongy cut surfaces. Definitive lesions are not grossly appreciated. Heel Slugger sections are submitted in 2 cassettes. AK 05/02/2025 CPT:87710
== END 2025-04-28 23:59 | disposition home or self-care (01) ==
LOC: LABSPEC 05-02 12:23
PROVIDERS: PCP Family Medicine; Referring Provider Urology; Visit Provider Urology
DX: D29.32 Benign neoplasm of left epididymis (principal)
CPT/HCPCS: 88304; 88307